=== PATIENT | female | born 1955 | race Caucasian/White ===

== ENCOUNTER 2019-04-22 07:00 | Day surgery (SDC) | payer OTHER | END 2019-04-22 11:05 | disposition home or self-care (01) | LOC: AMB-ENDOS 07:00 | DX: D12.3 Benign neoplasm of transverse colon (principal); D12.7 Benign neoplasm of rectosigmoid junction; K62.1 Rectal polyp; K64.3 Fourth degree hemorrhoids; Z12.11 Encounter for screening for malignant neoplasm of colon ==

== ENCOUNTER → 2021-05-01 11:50 | Outpatient (CLI) | payer OTHER | END | disposition home or self-care (01) | LOC: LAB 11:50 | PROVIDERS: ATTEND Internal Medicine Hematology & Oncology | DX: D72.823 Leukemoid reaction (principal); D47.1 Chronic myeloproliferative disease; I77.6 Arteritis, unspecified; L95.8 Other vasculitis limited to the skin; D53.8 Other specified nutritional anemias; D51.8 Other vitamin B12 deficiency anemias; E78.89 Other lipoprotein metabolism disorders; E11.9 Type 2 diabetes mellitus without complications; B34.8 Other viral infections of unspecified site ==

== ENCOUNTER 2021-05-18 12:39 | Outpatient (CLI) | payer OTHER | END 2021-05-18 12:41 | disposition home or self-care (01) | LOC: NUCLEAR 12:39 | PROVIDERS: ATTEND Internal Medicine Hematology & Oncology | DX: I73.89 Other specified peripheral vascular diseases (principal); I87.2 Venous insufficiency (chronic) (peripheral) | CPT/HCPCS: 78802; 93970; A9556 ==

== ENCOUNTER 2021-08-14 09:15 | Inpatient (IN) | payer OTHER ==
[~2021-08-14] VITALS: Ht 160 cm; Wt 78.0 kg
[2021-08-17] MEDS ORDERED: TRIPLE ANTIBI28.4 G3 (11:36)
[2021-08-17] MEDS ORDERED: ATORVASTATIN CA20 MG (11:36)
[2021-08-17] MEDS ORDERED: RESTORIL30 MG (11:36)
[2021-08-17] MEDS ORDERED: LOSARTAN POTAS100 MG (11:36)
[2021-08-17] MEDS ORDERED: PANTOPRAZOLE SO40 MG (11:36)
[2021-08-17] MEDS ORDERED: FIBER625 MG (11:36)
[2021-08-17] MEDS ORDERED: VENLAFAXINE HCL75 MG (11:37)
[2021-08-17] MEDS ORDERED: ROSUVASTATIN CA20 MG (11:37)
[2021-08-17] MEDS ORDERED: MONTELUKAST SOD10 MG (11:37)
[2021-08-17] MEDS ORDERED: PROAIR HFA8.5 GM (11:37)
[2021-08-17] MEDS ORDERED: MELATONIN5 M2 (11:37)
[2021-08-17] MEDS ORDERED: LOSARTAN-HCTZ1 EAC2 (11:38)
[2021-08-17] MEDS ORDERED: MAXIMUM D3325 MCG (11:38)
[2021-08-17] MEDS ORDERED: EMERGEN-C 1,01000 MG (11:38)
[2021-08-17] MEDS ORDERED: ANTACID200 MG (11:38)
[2021-08-17] MEDS ORDERED: DRY EYE RELIEF15 ML (11:38)
== END 2021-08-18 21:56 | disposition home or self-care (01) | DRG 741 ==
LOC: O/R 08-16 06:03 → SURH 08-16 06:03
PROVIDERS: ADMIT Obstetrics & Gynecology Gynecologic Oncology; ATTEND Obstetrics & Gynecology Gynecologic Oncology
PROC: 0UT20ZZ Resection of Bilateral Ovaries, Open Approach (ICD-10-PCS; 2021-08-16)
PROC: 0UT70ZZ Resection of Bilateral Fallopian Tubes, Open Approach (ICD-10-PCS; 2021-08-16)
PROC: 07BC0ZZ Excision of Pelvis Lymphatic, Open Approach (ICD-10-PCS; 2021-08-16)
PROC: 0UT90ZZ Resection of Uterus, Open Approach (ICD-10-PCS; principal; 2021-08-16 07:00)
DX: C54.1 Malignant neoplasm of endometrium (principal); D25.1 Intramural leiomyoma of uterus; N80.0 Endometriosis of uterus; K57.30 Diverticulosis of large intestine without perforation or abscess without bleeding; N95.0 Postmenopausal bleeding; I10 Essential (primary) hypertension

== ENCOUNTER 2021-08-24 15:49 | Emergency (ER) | payer OTHER ==
[~2021-08-24] VITALS: Ht 160 cm; Wt 78.0 kg
[~2021-08-24 15:49] MED LIST: ANTACID200 MG; ATORVASTATIN CA20 MG; DRY EYE RELIEF15 ML; EMERGEN-C 1,01000 MG; FIBER625 MG; LOSARTAN POTAS100 MG; LOSARTAN-HCTZ1 EAC2; MAXIMUM D3325 MCG; MELATONIN5 M2; MONTELUKAST SOD10 MG; PANTOPRAZOLE SO40 MG; PROAIR HFA8.5 GM; RESTORIL30 MG; ROSUVASTATIN CA20 MG; TRIPLE ANTIBI28.4 G3; VENLAFAXINE HCL75 MG
== END 2021-08-24 18:55 | disposition home or self-care (01) ==
LOC: ER 15:49
DX: R60.0 Localized edema (principal); D64.89 Other specified anemias; Z90.710 Acquired absence of both cervix and uterus